=== PATIENT | female | born 2000 | race Hispanic/Latino ===

== ENCOUNTER 2019-01-24 13:46 | Inpatient (IN) | payer BC ==
[2019-01-24] MEDS ORDERED: Sodium Chloride 0.9% 1,000 ML IV STA (14:04)
--- NOTE | 2019-01-24 14:09 | ED PDOC ---
HPI: General Adult Time Seen by Provider: 01/24/19 13:59 Chief Complaint (Nursing): Abnormal Labs Chief Complaint (Provider): Low hr History Per: Patient History/Exam Limitations: no limitations Onset/Duration Of Symptoms: Days (weeks) Additional Complaint(s): Pt. has been getting work up done with her psychiatrist for depression. They had blood work done that showed some changes. Went to Dr. Mares and sent to the ER for evaluation. Pt. denies any chest pain, palpitations, dyspnea, cough, new meds or drugs, suicidal or homicidal thoughts, alchohol, dizziness. Pt. states she does work out 2x a day and is cutting calories. On no meds. Past Medical History Reviewed: Nursing Documentation, Vital Signs Vital Signs: Last Vital Signs Temp 97.5 F L 01/24/19 13:53 Pulse 38 L 01/24/19 13:53 Resp 16 01/24/19 13:53 BP 142/75 01/24/19 13:53 Pulse Ox 100 01/24/19 13:53 - Medical History PMH: Depression - Surgical History Surgical History: No Surg Hx - Family History Family History: States: Unknown Family Hx - Allergies Allergies/Adverse Reactions: Allergies Allergy/AdvReac Type Severity Reaction Status Date / Time No Known Allergies Allergy Verified 01/24/19 13:53 Review of Systems ROS Statement: Except As Marked, All Systems Reviewed And Found Negative Constitutional: Positive for: Weakness Neurological: Positive for: Weakness Physical Exam - Reviewed Nursing Documentation Reviewed: Yes Vital Signs Reviewed: Yes - Physical Exam Appears: Positive for: Uncomfortable Head Exam: Positive for: ATRAUMATIC, NORMAL INSPECTION, NORMOCEPHALIC Skin: Positive for: Normal Color, Warm, DRY Eye Exam: Positive for: EOMI, Normal appearance, PERRL ENT: Positive for: Normal ENT Inspection Neck: Positive for: Normal, Painless ROM Cardiovascular/Chest: Positive for: Bradycardia. Negative for: Edema Respiratory: Positive for: CNT, Normal Breath Sounds Gastrointestinal/Abdominal: Positive for: Normal Exam, Soft. Negative for: Tenderness Back: Positive for: Normal Inspection. Negative for: L CVA Tenderness, R CVA Tenderness Extremity: Positive for: Normal ROM. 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 Negative for: Motor/Sensory Deficits, Facial Droop - Laboratory Results Result Diagrams: 01/24/19 14:50 Interpretation Of Abn Labs: no acute - ECG ECG: Positive for: Interpreted By Me, Viewed By Me ECG Rhythm: Positive for: Sinus Bradycardia O2 Sat by Pulse Oximetry: 100 Pulse Ox Interpretation: Normal - Progress ED Course And Treament: 1459: Pt. hr goes down to 34 and then comes up to 40. Will give atropine 0.5mg IV. Pt. states only little bit of weakness. No dizziness or other symptoms. 1532: Spoke with Dr. Cantu. Will admit ICU. Spoke with Dr. Mares. Will admit. Pt. asymptomatic. HR up to 54 after atropine. 1538: Stable. AAOx3. Dr. Auguste made aware. Will consult. States nonething to do at this time. - Critical Care Total Time (In Min): 30 Documented Critical Care: Time excludes all time spent performint seperately billable procedures Disposition - Clinical Impression Clinical Impression: Bradycardia - Patient ED Disposition Is Patient to be Admitted: Yes Counseled Patient/Family Regarding: Studies Performed, Diagnosis - Disposition Disposition Time: 14:10 Condition: SERIOUS - Pt Status Changed To: Hospital Disposition Of: Inpatient - Admit Certification Admit to Inpatient:: After my assessment, the patient will require hospitalization for at least two midnights. This is because of the severity of symptoms shown, intensity of services needed, and/or the medical risk in this patient being treated as an outpatient. - POA Present On Arrival: None
[2019-01-24 14:33] LABS: VENOUS BLOOD GAS BASE EXCESS 4.4 mmol/L (0.0-2.0); VENOUS BLOOD GAS PCO2 52 mmHg (40-60); VENOUS BLOOD GAS PO2 20 mm/Hg (30-55); VENOUS BLOOD PH 7.38 (7.32-7.43)
[2019-01-24] MEDS ORDERED: levoFLOXacin 750 mg in D5W 750 MG/150 ML BAG IVPB ONE (14:45)
[2019-01-24] MEDS ORDERED: Vancomycin 1 g Inj ONE (14:45)
[2019-01-24] MEDS ORDERED: Atropine 0.4 mg/ml Inj (1 mL) IV STA (14:58)
[2019-01-24 15:00] LABS: BASO # 0.1 K/uL (0.0-0.2); BASO % 1.2 % (0.0-2.0); EOS # 0.1 K/uL (0.0-0.7); EOS % 1.2 % (0.0-4.0); HEMOGLOBIN 13.9 g/dL (12.0-16.0); LYMPH # 1.4 K/uL (1.0-4.3); LYMPH % 31.3 % (20.0-40.0); MEAN CELL VOLUME 103.3 fl (81.0-99.0); MEAN CORPUSCULAR HEMOGLOBIN 34.5 pg (27.0-31.0); MEAN CORPUSCULAR HGB CONC 33.4 g/dL (33.0-37.0); MEAN PLATELET VOLUME 8.6 fl (7.2-11.7); MONO # 0.3 K/uL (0.0-0.8); MONO % 7.1 % (0.0-10.0); NEUT # 2.7 K/uL (1.8-7.0); NEUT % 59.2 % (50.0-75.0); NRBC % 0.1 % (0.0-0.0); RBC 4.01 Mil/uL (3.80-5.20); RED CELL DISTRIBUTION WIDTH 16.2 % (11.5-14.5); WHITE BLOOD COUNT 4.6 K/uL (4.8-10.8)
[2019-01-24 15:11] LABS: ALB/GLOB RATIO 1.9 (1.0-2.1); ALT/SGPT 277 U/L (9-52); AST/SGOT 60 U/L (14-36); BLOOD UREA NITROGEN 18 mg/dl (7-17); CALCIUM 9.8 mg/dL (8.4-10.2); GFR NON-AFRICAN AMERICAN > 60
[2019-01-24 16:10] LABS: ACETAMINOPHEN < 10.0 ug/ml (10.0-30.0); SALICYLATE < 1.0 mg/dl
[2019-01-24 16:13] LABS: INR 1.2; PROTHROMBIN TIME 13.4 Seconds (9.8-13.1)
[2019-01-24 16:41] LABS: BARBITURATES, UR NEGATIVE (NEGATIVE); BENZODIAZEPINES, UR NEGATIVE (NEGATIVE); OPIATES, UR NEGATIVE (NEGATIVE); PHENCYCLIDINE, UR NEGATIVE (NEGATIVE)
--- NOTE | 2019-01-24 16:43 | RAD ---
Date of service: 01/24/2019 HISTORY: weakness COMPARISON: No prior. FINDINGS: LUNGS: No active pulmonary disease. PLEURA: No significant pleural effusion identified, no pneumothorax apparent. CARDIOVASCULAR: No atherosclerotic calcification present Normal. OSSEOUS STRUCTURES: No significant abnormalities. VISUALIZED UPPER ABDOMEN: Normal. OTHER FINDINGS: None. IMPRESSION: No active disease.
[2019-01-24] MEDS ORDERED: Potassium Chl 20 mEq in D5-NS 1,000 ML IV SCH (18:00)
[2019-01-24 18:14] LABS: FSH < 0.7 mIU/mL
--- NOTE | 2019-01-24 21:00 | CARD ---
APPROVED REPORT Date of service: 01/24/2019 EKG Measurement Heart [id number] <Conclusion> Marked sinus bradycardia Otherwise normal ECG
--- NOTE | 2019-01-25 02:44 | CON ---
DATE: 01/24/2019 CRITICAL CARE CONSULTATION The patient in the ER being admitted to ICU. REASON FOR EVALUATION: A 18-year-old female with bradycardia. Past medical, surgical, family and social history reviewed. HISTORY OF PRESENT ILLNESS: Ms. Castellanos is a 18-year-old female, freshman, living in a [place]. She is from [place]. She has been involved with physical activities up until she moved to college. Reportedly, she lost about 45 pounds since 08/2018. Reportedly, she has been watching her diet, cutting down her calorie intake. Also reports that she has limited social interaction and feels anxious and apprehensive in the college. However, she has been able to maintain her grade level in the college. Because of her recent change in behavior and because of loss of weight, she saw a metal burnisher in 08/2018. Truck Sales Manager recommended to have her evaluated by a psychiatrist. Psychiatrist evaluation noted abnormalities in the routine lab work and recommended to see an entry level electrician, seen by the entry level electrician and referred her to ER because of bradycardia. The patient denies having headache, dizziness, lightheadedness. She has no shortness of breath, chest pain or palpitations. She is able to do routine activities, but feels tired as she correlates to reduced calorie intake. PAST MEDICAL HISTORY: Significant for anxiety and depression. Had no suicidal attempts in the past. PAST SURGICAL HISTORY: Had no surgical history. FAMILY HISTORY: Unremarkable. She has a twin sister who lives in [place], reportedly has no medical issues. ALLERGIES: NONE DOCUMENTED. CURRENT MEDICATIONS: At home, none. SOCIAL HISTORY: She denies drinking alcohol or recreational drug use. PHYSICAL EXAMINATION: GENERAL: A thin-built female, oriented to name, place and time, no distress noted. VITAL SIGNS: Temperature 97.5, heart rate 38 and regular, respiratory rate of 16 thoracoabdominal, blood pressure 140/75, pulse oximetry 100. HEAD, EYES, EARS, NOSE AND THROAT: Pupils are reactive, 2-3 mm. No nystagmus. Trachea central. NECK: No jugular venous distention. CHEST: Bilateral breath sounds. Clear to auscultation. HEART: Rhythm regular. S1, S2 normal intensity. No S3, S4, gallop. No audible murmur. ABDOMEN: Bowel sounds present. Soft. Liver and spleen are not palpable. Bladder not distended. EXTREMITIES: No clubbing, cyanosis or edema. NEUROLOGIC: Nonfocal. LABORATORY DATA: EKG sinus bradycardia. WBC 4.6, hemoglobin 13.9, hematocrit 41.5, platelet count of 269. SMA-7, sodium 140, potassium 3.7, chloride 101, CO2 of 28, blood urea nitrogen 18, creatinine 0.6, random glucose 77, calcium 9.8, phosphorus 3.5, magnesium 2. Total bilirubin 0.6, AST 60, ALT 277, alkaline phosphatase 88. Troponin less than 0.0120, total protein 7.7, albumin 5. Toxicology screen, salicylates less than 1, acetaminophen less than 10. Urine drug screen, negative. Chest x-ray, no abnormality noted. IMPRESSION AND PLAN: A 18-year-old female with underlying anxiety and possible depression of unknown etiology. No history of previous suicidal attempt, now with obsessive-compulsive disorder with restricted diet, undergoing psychiatric evaluation, noted to have bradycardia, however, she has been physically active and bradycardia does not interfere with her daily routine. Will admit and do medical evaluation to rule out hypothyroidism and other electrolyte abnormalities. The patient is currently not on any medications at home. Could benefit from continued psychiatric evaluation. Will obtain a cardiology evaluation as per request of PMD and ER physician. Flako Cantu MD
[2019-01-25 05:50] LABS: HEMOGLOBIN 13.2 g/dL (12.0-16.0); MEAN CELL VOLUME 103.3 fl (81.0-99.0); MEAN CORPUSCULAR HEMOGLOBIN 34.5 pg (27.0-31.0); MEAN CORPUSCULAR HGB CONC 33.4 g/dL (33.0-37.0); RBC 3.81 Mil/uL (3.80-5.20); RED CELL DISTRIBUTION WIDTH 15.2 % (11.5-14.5); WHITE BLOOD COUNT 4.9 K/uL (4.8-10.8)
[2019-01-25 06:07] LABS: ALB/GLOB RATIO 1.8 (1.0-2.1); ALBUMIN 4.1 g/dL (3.5-5.0); ALT/SGPT 216 U/L (9-52); AST/SGOT 51 U/L (14-36); BLOOD UREA NITROGEN 18 mg/dl (7-17); CALCIUM 9.4 mg/dL (8.4-10.2); GFR NON-AFRICAN AMERICAN > 60
[2019-01-25] MEDS ORDERED: Influenza Vaccine 60 MCG/0.5 ML SYR (3 yr & up) IM ONE (07:43)
[2019-01-25 10:34] LABS: HDL CHOLESTEROL 56 MG/DL (30-70)
[2019-01-25 10:45] LABS: LDL CHOLESTEROL 49 mg/dL (0-129)
--- NOTE | 2019-01-25 10:55 | CP.PCM.CON ---
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 SHE DENIES ANY MAJOR MEDICAL PROBLEMS. SHE RECENTLY SAW A PSYCHIATRIST FOR DEPRESSION AND LABS WERE DRAWN AND LFT WERE ELEVATED. SHE SAW DR RINALDI AND SHE WAS BRADYCARDIC SO SHE WAS SENT HERE. SHE DENIES DIZZINESS, SYNCOPE OR NEAR SYNCOPE, SOB OR CHEST PAIN. 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 DR RINALDI ALSO TOLD ME SHE HAS ANOREXIA NERVOSA. Past Patient History - Past Medical History & Family History Past Medical History?: Yes - Past Social History Smoking Status: Never Smoked - CARDIAC Hx Cardiac Disorders: No - PULMONARY Hx Respiratory Disorders: No - NEUROLOGICAL Hx Neurological Disorder: No - HEENT Hx HEENT Problems: No - RENAL Hx Chronic Kidney Disease: No - ENDOCRINE/METABOLIC Hx Endocrine Disorders: No - HEMATOLOGICAL/ONCOLOGICAL Hx Blood Disorders: No - INTEGUMENTARY Hx Dermatological Problems: No - MUSCULOSKELETAL/RHEUMATOLOGICAL Hx Musculoskeletal Disorders: No Hx Falls: No - GASTROINTESTINAL Hx Gastrointestinal Disorders: No - GENITOURINARY/GYNECOLOGICAL Hx Genitourinary Disorders: No - PSYCHIATRIC Hx Anxiety: Yes Hx Depression: Yes Hx Substance Use: No - SURGICAL HISTORY Hx Surgeries: No - ANESTHESIA Hx Anesthesia: No Meds Allergies/Adverse Reactions: Allergies Allergy/AdvReac Type Severity Reaction Status Date / Time No Known Allergies Allergy Verified 01/24/19 13:53 - Medications Medications: Current Medications Atropine Sulfate (Atropine) 0.5 mg IVP Q4H PRN PRN Reason: Other Potassium Chloride/Dextrose/Sod Cl (Potassium Chl 20 Meq In D5-Ns) 1,000 mls @ 40 mls/hr IV .Q24H RADHA Stop: 01/25/19 17:07 Physical Exam - Respiratory Exam Respiratory Exam: Clear to Auscultation Bilateral - Cardiovascular Exam Cardiovascular Exam: Bradycardia, REGULAR RHYTHM, +S1, +S2 - Extremities Exam Additional comments: NO LE EDEMA AT THE PRESENT TIME - Additional Findings Additional findings: EKG SINUS BRADYCARDIA , R 39, OTHERWISE NORMAL EKG EKG SINUS RHYTHM IN THE 30'S AND 40'S TROPONIN NORMAL. AST AND ALT ARE ELEVATED TSH IS NORMAL Results - Vital Signs Recent Vital Signs: Last Vital Signs Temp 97.3 F L 01/25/19 08:00 Pulse 39 L 01/25/19 08:00 Resp 16 01/25/19 08:00 BP 103/61 01/25/19 08:00 Pulse Ox 96 01/25/19 08:00 - Labs Result Diagrams: 01/25/19 05:32 01/25/19 05:32 Labs: Laboratory Results - last 24 hr 01/24/19 01/24/19 01/24/19 14:04 14:50 14:50 WBC 4.6 L RBC 4.01 Hgb 13.9 Hct 41.5 MCV 103.3 H MCH 34.5 H MCHC 33.4 RDW 16.2 H Plt Count 269 MPV 8.6 Neut % (Auto) 59.2 Lymph % (Auto) 31.3 [place] % (Auto) 7.1 Eos % (Auto) 1.2 Baso % (Auto) 1.2 Neut # (Auto) 2.7 Lymph # (Auto) 1.4 [place] # (Auto) 0.3 Eos # (Auto) 0.1 Baso # (Auto) 0.1 PT INR APTT pO2 20 L VBG pH 7.38 VBG pCO2 52 VBG HCO3 26.6 VBG Total CO2 32.4 H VBG O2 Sat (Calc) 36.5 L VBG Base Excess 4.4 H VBG Potassium 3.7 Sodium 139.0 140 Chloride 102.0 101 Glucose 78 Lactate 0.9 FiO2 21.0 Potassium 3.7 Carbon Dioxide 28 Anion Gap 15 BUN 18 H Creatinine 0.6 L Est GFR ( Amer) > 60 Est GFR (Non-Af Amer) > 60 POC Glucose (mg/dL) Random Glucose 77 Calcium 9.8 Phosphorus 3.5 Magnesium 2.0 Total Bilirubin 0.6 AST 60 H ALT 277 H Alkaline Phosphatase 88 Troponin I < 0.0120 Total Protein 7.7 Albumin 5.0 Globulin 2.7 Albumin/Globulin Ratio 1.9 Free T4 TSH 3rd Generation FSH 3rd Generation Venous Blood Potassium 3.7 Salicylates Urine Opiates Screen Urine Methadone Screen Acetaminophen Ur Barbiturates Screen Ur Phencyclidine Scrn Ur Amphetamines Screen U Benzodiazepines Scrn U Oth Cocaine Metabols U Cannabinoids Screen Alcohol, Quantitative < 10 01/24/19 01/24/19 01/24/19 15:30 15:30 15:30 WBC RBC Hgb Hct MCV MCH MCHC RDW Plt Count MPV Neut % (Auto) Lymph % (Auto) [place] % (Auto) Eos % (Auto) Baso % (Auto) Neut # (Auto) Lymph # (Auto) [place] # (Auto) Eos # (Auto) Baso # (Auto) PT 13.4 H INR 1.2 APTT 31.0 pO2 VBG pH VBG pCO2 VBG HCO3 VBG Total CO2 VBG O2 Sat (Calc) VBG Base Excess VBG Potassium Sodium Chloride Glucose Lactate FiO2 Potassium Carbon Dioxide Anion Gap BUN Creatinine Est GFR ( Amer) Est GFR (Non-Af Amer) POC Glucose (mg/dL) Random Glucose Calcium Phosphorus Magnesium Total Bilirubin AST ALT Alkaline Phosphatase Troponin I Total Protein Albumin Globulin Albumin/Globulin Ratio Free T4 TSH 3rd Generation FSH 3rd Generation Venous Blood Potassium Salicylates < 1.0 Urine Opiates Screen Negative Urine Methadone Screen Negative Acetaminophen < 10.0 L Ur Barbiturates Screen Negative Ur Phencyclidine Scrn Negative Ur Amphetamines Screen Negative U Benzodiazepines Scrn Negative U Oth Cocaine Metabols Negative U Cannabinoids Screen Negative Alcohol, Quantitative 01/24/19 01/24/19 01/24/19 17:17 17:38 17:38 WBC RBC Hgb Hct MCV MCH MCHC RDW Plt Count MPV Neut % (Auto) Lymph % (Auto) [place] % (Auto) Eos % (Auto) Baso % (Auto) Neut # (Auto) Lymph # (Auto) [place] # (Auto) Eos # (Auto) Baso # (Auto) PT INR APTT pO2 VBG pH VBG pCO2 VBG HCO3 VBG Total CO2 VBG O2 Sat (Calc) VBG Base Excess VBG Potassium Sodium Chloride Glucose Lactate FiO2 Potassium Carbon Dioxide Anion Gap BUN Creatinine Est GFR ( Amer) Est GFR (Non-Af Amer) POC Glucose (mg/dL) 83 Random Glucose Calcium Phosphorus Magnesium Total Bilirubin AST ALT Alkaline Phosphatase Troponin I Total Protein Albumin Globulin Albumin/Globulin Ratio Free T4 0.84 TSH 3rd Generation 3.79 FSH 3rd Generation < 0.7 Venous Blood Potassium Salicylates Urine Opiates Screen Urine Methadone Screen Acetaminophen Ur Barbiturates Screen Ur Phencyclidine Scrn Ur Amphetamines Screen U Benzodiazepines Scrn U Oth Cocaine Metabols U Cannabinoids Screen Alcohol, Quantitative 01/24/19 01/25/19 01/25/19 19:31 05:32 05:32 WBC 4.9 RBC 3.81 Hgb 13.2 Hct 39.4 MCV 103.3 H MCH 34.5 H MCHC 33.4 RDW 15.2 H Plt Count 266 MPV Neut % (Auto) Lymph % (Auto) [place] % (Auto) Eos % (Auto) Baso % (Auto) Neut # (Auto) Lymph # (Auto) [place] # (Auto) Eos # (Auto) Baso # (Auto) PT INR APTT pO2 VBG pH VBG pCO2 VBG HCO3 VBG Total CO2 VBG O2 Sat (Calc) VBG Base Excess VBG Potassium Sodium 138 Chloride 103 Glucose Lactate FiO2 Potassium 3.9 Carbon Dioxide 29 Anion Gap 10 BUN 18 H Creatinine 0.7 Est GFR ( Amer) > 60 Est GFR (Non-Af Amer) > 60 POC Glucose (mg/dL) 94 Random Glucose 94 Calcium 9.4 Phosphorus Magnesium Total Bilirubin 0.6 AST 51 H ALT 216 H D Alkaline Phosphatase 72 Troponin I Total Protein 6.4 Albumin 4.1 Globulin 2.3 Albumin/Globulin Ratio 1.8 Free T4 TSH 3rd Generation FSH 3rd Generation Venous Blood Potassium Salicylates Urine Opiates Screen Urine Methadone Screen Acetaminophen Ur Barbiturates Screen Ur Phencyclidine Scrn Ur Amphetamines Screen U Benzodiazepines Scrn U Oth Cocaine Metabols U Cannabinoids Screen Alcohol, Quantitative Assessment & Plan - Assessment and Plan (Free Text) Assessment: 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
--- NOTE | 2019-01-25 14:12 | CP.PCM.CON ---
History of Present Illness - History of Present Illness History of Present Illness: pt is 18 ys old female with recent psychiatric diagnosis of anorexia nervosa restricting type admitted for work up for bradycardia. pt reported that till last august her body was up to 165 lb , she was feeling down about her body weight , she started a strenuous exercise to manage her body weight program, and met with a store gift wrap associate, pt since then has lost about 40lbs, at the current time sheis having distorted body image continues to see herselk overweight in the mirror with fear of her looks, restricting her diet , pt has seeked counseling in school and started seeing client resource specialist only one week ago she reported that she feels very depressed as her fear of gaining weight makes her miss on all the fun activities and she also feels anxious that she has to keep up with all this hard work to maintain her low body weight pt denied any purging, denied any other self harm behaviour, denied suicidal or homicidal ideation denied perceptual disturbances Past Patient History - Past Medical History & Family History Past Medical History?: Yes - Past Social History Smoking Status: Never Smoked - CARDIAC Hx Cardiac Disorders: No - PULMONARY Hx Respiratory Disorders: No - NEUROLOGICAL Hx Neurological Disorder: No - HEENT Hx HEENT Problems: No - RENAL Hx Chronic Kidney Disease: No - ENDOCRINE/METABOLIC Hx Endocrine Disorders: No - HEMATOLOGICAL/ONCOLOGICAL Hx Blood Disorders: No - INTEGUMENTARY Hx Dermatological Problems: No - MUSCULOSKELETAL/RHEUMATOLOGICAL Hx Musculoskeletal Disorders: No Hx Falls: No - GASTROINTESTINAL Hx Gastrointestinal Disorders: No - GENITOURINARY/GYNECOLOGICAL Hx Genitourinary Disorders: No - PSYCHIATRIC Hx Anxiety: Yes Hx Depression: Yes Hx Substance Use: No - SURGICAL HISTORY Hx Surgeries: No - ANESTHESIA Hx Anesthesia: No Meds Allergies/Adverse Reactions: Allergies Allergy/AdvReac Type Severity Reaction Status Date / Time No Known Allergies Allergy Verified 01/24/19 13:53 - Medications Medications: Current Medications Atropine Sulfate (Atropine) 0.5 mg IVP Q4H PRN PRN Reason: Other Potassium Chloride/Dextrose/Sod Cl (Potassium Chl 20 Meq In D5-Ns) 1,000 mls @ 40 mls/hr IV .Q24H RADHA Stop: 01/25/19 17:07 Physical Exam - Psychiatric Exam Additional comments: pt seen in bed , cooperative good eye contact speech normal, thought form coherent . mood depressed related that to missing on her excercise this morning affect tearful, pt denied any current suicidal or homicidal ideation denied perceptual disturbances, non elicited alert awake ox3 Results - Vital Signs Recent Vital Signs: Last Vital Signs Temp 98.1 F 01/25/19 12:00 Pulse 41 L 01/25/19 12:47 Resp 20 01/25/19 12:00 BP 104/61 01/25/19 12:00 Pulse Ox 98 01/25/19 12:00 - Labs Result Diagrams: 01/25/19 05:32 01/25/19 05:32 Labs: Laboratory Results - last 24 hr 01/24/19 01/24/19 01/24/19 14:04 14:50 14:50 WBC 4.6 L RBC 4.01 Hgb 13.9 Hct 41.5 MCV 103.3 H MCH 34.5 H MCHC 33.4 RDW 16.2 H Plt Count 269 MPV 8.6 Neut % (Auto) 59.2 Lymph % (Auto) 31.3 [place] % (Auto) 7.1 Eos % (Auto) 1.2 Baso % (Auto) 1.2 Neut # (Auto) 2.7 Lymph # (Auto) 1.4 [place] # (Auto) 0.3 Eos # (Auto) 0.1 Baso # (Auto) 0.1 PT INR APTT pO2 20 L VBG pH 7.38 VBG pCO2 52 VBG HCO3 26.6 VBG Total CO2 32.4 H VBG O2 Sat (Calc) 36.5 L VBG Base Excess 4.4 H VBG Potassium 3.7 Sodium 139.0 140 Chloride 102.0 101 Glucose 78 Lactate 0.9 FiO2 21.0 Potassium 3.7 Carbon Dioxide 28 Anion Gap 15 BUN 18 H Creatinine 0.6 L Est GFR ( Amer) > 60 Est GFR (Non-Af Amer) > 60 POC Glucose (mg/dL) Random Glucose 77 Calcium 9.8 Phosphorus 3.5 Magnesium 2.0 Total Bilirubin 0.6 AST 60 H ALT 277 H Alkaline Phosphatase 88 Troponin I < 0.0120 Total Protein 7.7 Albumin 5.0 Globulin 2.7 Albumin/Globulin Ratio 1.9 Triglycerides Cholesterol LDL Cholesterol Direct HDL Cholesterol Free T4 TSH 3rd Generation FSH 3rd Generation Venous Blood Potassium 3.7 Salicylates Urine Opiates Screen Urine Methadone Screen Acetaminophen Ur Barbiturates Screen Ur Phencyclidine Scrn Ur Amphetamines Screen U Benzodiazepines Scrn U Oth Cocaine Metabols U Cannabinoids Screen Alcohol, Quantitative < 10 01/24/19 01/24/19 01/24/19 15:30 15:30 15:30 WBC RBC Hgb Hct MCV MCH MCHC RDW Plt Count MPV Neut % (Auto) Lymph % (Auto) [place] % (Auto) Eos % (Auto) Baso % (Auto) Neut # (Auto) Lymph # (Auto) [place] # (Auto) Eos # (Auto) Baso # (Auto) PT 13.4 H INR 1.2 APTT 31.0 pO2 VBG pH VBG pCO2 VBG HCO3 VBG Total CO2 VBG O2 Sat (Calc) VBG Base Excess VBG Potassium Sodium Chloride Glucose Lactate FiO2 Potassium Carbon Dioxide Anion Gap BUN Creatinine Est GFR ( Amer) Est GFR (Non-Af Amer) POC Glucose (mg/dL) Random Glucose Calcium Phosphorus Magnesium Total Bilirubin AST ALT Alkaline Phosphatase Troponin I Total Protein Albumin Globulin Albumin/Globulin Ratio Triglycerides Cholesterol LDL Cholesterol Direct HDL Cholesterol Free T4 TSH 3rd Generation FSH 3rd Generation Venous Blood Potassium Salicylates < 1.0 Urine Opiates Screen Negative Urine Methadone Screen Negative Acetaminophen < 10.0 L Ur Barbiturates Screen Negative Ur Phencyclidine Scrn Negative Ur Amphetamines Screen Negative U Benzodiazepines Scrn Negative U Oth Cocaine Metabols Negative U Cannabinoids Screen Negative Alcohol, Quantitative 01/24/19 01/24/19 01/24/19 17:17 17:38 17:38 WBC RBC Hgb Hct MCV MCH MCHC RDW Plt Count MPV Neut % (Auto) Lymph % (Auto) [place] % (Auto) Eos % (Auto) Baso % (Auto) Neut # (Auto) Lymph # (Auto) [place] # (Auto) Eos # (Auto) Baso # (Auto) PT INR APTT pO2 VBG pH VBG pCO2 VBG HCO3 VBG Total CO2 VBG O2 Sat (Calc) VBG Base Excess VBG Potassium Sodium Chloride Glucose Lactate FiO2 Potassium Carbon Dioxide Anion Gap BUN Creatinine Est GFR ( Amer) Est GFR (Non-Af Amer) POC Glucose (mg/dL) 83 Random Glucose Calcium Phosphorus Magnesium Total Bilirubin AST ALT Alkaline Phosphatase Troponin I Total Protein Albumin Globulin Albumin/Globulin Ratio Triglycerides Cholesterol LDL Cholesterol Direct HDL Cholesterol Free T4 0.84 TSH 3rd Generation 3.79 FSH 3rd Generation < 0.7 Venous Blood Potassium Salicylates Urine Opiates Screen Urine Methadone Screen Acetaminophen Ur Barbiturates Screen Ur Phencyclidine Scrn Ur Amphetamines Screen U Benzodiazepines Scrn U Oth Cocaine Metabols U Cannabinoids Screen Alcohol, Quantitative 01/24/19 01/25/19 01/25/19 19:31 05:32 05:32 WBC 4.9 RBC 3.81 Hgb 13.2 Hct 39.4 MCV 103.3 H MCH 34.5 H MCHC 33.4 RDW 15.2 H Plt Count 266 MPV Neut % (Auto) Lymph % (Auto) [place] % (Auto) Eos % (Auto) Baso % (Auto) Neut # (Auto) Lymph # (Auto) [place] # (Auto) Eos # (Auto) Baso # (Auto) PT INR APTT pO2 VBG pH VBG pCO2 VBG HCO3 VBG Total CO2 VBG O2 Sat (Calc) VBG Base Excess VBG Potassium Sodium 138 Chloride 103 Glucose Lactate FiO2 Potassium 3.9 Carbon Dioxide 29 Anion Gap 10 BUN 18 H Creatinine 0.7 Est GFR ( Amer) > 60 Est GFR (Non-Af Amer) > 60 POC Glucose (mg/dL) 94 Random Glucose 94 Calcium 9.4 Phosphorus Magnesium Total Bilirubin 0.6 AST 51 H ALT 216 H D Alkaline Phosphatase 72 Troponin I Total Protein 6.4 Albumin 4.1 Globulin 2.3 Albumin/Globulin Ratio 1.8 Triglycerides 91 Cholesterol 112 LDL Cholesterol Direct 49 HDL Cholesterol 56 Free T4 TSH 3rd Generation FSH 3rd Generation Venous Blood Potassium Salicylates Urine Opiates Screen Urine Methadone Screen Acetaminophen Ur Barbiturates Screen Ur Phencyclidine Scrn Ur Amphetamines Screen U Benzodiazepines Scrn U Oth Cocaine Metabols U Cannabinoids Screen Alcohol, Quantitative Assessment & Plan - Assessment and Plan (Free Text) Assessment: anorexia nervosa restricting type Plan: BRIEF CBT provided to patient about automatic thoughts related to distorted body image educated the patient about the possible impact of food restriction on her health pt at current mental status denied suicidal or homicidal ideation denied perceptual disturbances psychiatrically cleared for discharge with the following recommendations 1. careful follow up at least weekly by PMD on body weight and metabolic pannel with possible inpatient admission if needed 2. discussed with pt referral to intensive inpatient eating disorder center upon finishing her finals { the [facility] in [facility] } 3. pt need to continue follow up with private therapist at least weekly till then
--- NOTE | 2019-01-25 14:32 | CON ---
DATE: 01/25/2019 REASON FOR ELECTROPHYSIOLOGY CONSULTATION: Bradycardia/sinus bradycardia. REQUESTING PHYSICIAN: Eric Blue MD HISTORY OF PRESENT ILLNESS: Ms. Mel Castellanos is a 18-year-old female without significant past medical history who presents for EP evaluation after being admitted to the ICU with severe sinus bradycardia with heart rate in the 30s. 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 She is very active playing for the [employer] for the school, also is on a vigorous exercise program, which includes working out twice a day. In addition, the patient has put herself on a low-calorie intake diet in an effort to lose weight. She reportedly has lost approximately 45 pounds since 08/2018. The patient is under stress at school to maintain her grades as well as keep up with other activity. She does experience symptoms of anxiety and limited social interaction. The patient in the process of addressing her nutritional status has seen a dietitian, who then referred to a psychiatrist to deal with her anxiety issues. Ultimately, did see an lna who had noted on an EKG that her sinus rates were in the 30s and 40s and referred her for ER evaluation from the office. In the ER, the patient was found to be hemodynamically stable and was in a sinus bradycardia in the mid 30s to 40s. The patient was given atropine, which strangely did increase her heart rate up into the 50s and subsequently back down to her baseline bradycardia. As mentioned previously, she is very active. Denies any activity intolerance. Does at times feel fatigued, but is believed to be secondary to decreased p.o. intake. She denies any dizziness, lightheadedness, palpitations, syncope, or presyncope. She did not have any chest pain or shortness of breath. Last week, interestingly the patient did note bilateral lower extremity swelling as well as some degree of swelling in her face, which did resolve spontaneously. PAST MEDICAL HISTORY: As mentioned in the history of present illness that includes anxiety and depression for which she has not been treated medically. PAST SURGICAL HISTORY: The patient has no past surgical history. FAMILY HISTORY: The patient has a twin sister who is reportedly healthy and lives in [place]. ALLERGIES: NO KNOWN DRUG ALLERGIES. MEDICATIONS: No medications. SOCIAL HISTORY: The patient does not admit to having a history of tobacco, ETOH abuse, or recreational drug abuse. LABORATORY DATA: On review of relevant laboratory work, the patient has a white count of 4.6, H and H of 13.9 and 41.05. The patient does appear to have a macrocytosis with an MCV of 103 and MCH of 34.5, platelets of 269. INR is 1.2. PT is 13.4. Blood gas showed a pH of 7.38, pO2 of 20 with a CO2 on venous blood gas of 32.4. BUN and creatinine is 18 and 0.6. Sodium of 140, potassium is 3.7, calcium of 9.8, albumin of 5, ALT and AST of 50 and 2.77. Toxicology on admission was negative. TSH is 3.79. Free T4 is 0.84. Prolactin is pending. Telemetry shows sinus bradycardia with heart rates at times approaching 60. Baseline heart rates are in the mid to high 30s. Lowest documented heart rate is 32 beats per minute. EKG, which was done on 01/23/2019 shows normal sinus rhythm/bradycardia. Normal P-wave morphology. No evidence of preexcitation. Normal axis across the precordium. Normal R-wave progression. QT and QTC is 550 and 442. corrected QTC is within normal limit. PHYSICAL EXAMINATION: VITAL SIGNS: On examination, temperature is 98.2, pulse rate of 38, blood pressure is 100/65, mean arterial pressure is 76, respirations of 16. GENERAL: She is a well-developed, well-nourished, pleasant, appropriate female in no acute distress. Able to speak in complete sentences. HEENT: Examination of her head is normocephalic, atraumatic. There is no shawnee facial asymmetry. Mucous membranes appear moist. NECK: Supple. No jugular venous distention. CHEST: Clear to auscultation bilaterally. CARDIOVASCULAR: Regular rate and rhythm. S1, S2. No S3 or S4 is noted. ABDOMEN: Soft, nontender, nondistended. Positive bowel sounds. EXTREMITIES: No cyanosis, clubbing or edema is noted at this time. ASSESSMENT AND PLAN: 1. 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 At this point, she has no symptoms that would be suggestive of chronotropic incompetence. At this point, we will not require chronotropic support in the form of a permanent pacemaker. She is not on rate-slowing agents and at this point, we will not require any intervention from my standpoint. 2D echocardiogram would ambulate to document appropriate heart rate response without any symptoms. 2. Elevation of liver enzymes of unclear cause. The patient has been counseled to regularize and normalize her dietary patterns. Unclear if this is secondary to metabolic derangement secondary to her severe exercise program. 3. History of lower extremity edema and facial swelling last week. It is unclear whether this is secondary to exercise-induced skeletal muscle breakdown resulting in rhabdomyolysis. Again, the patient has been counseled as far as limiting extreme twice a day exercise and again regularizing her diet to allow for reasonable caloric intake. Thank you for allowing me to participate in the care of your patient. Please do not hesitate to call if you have any questions or requests to her care. The patient was seen in the ICU. The patient's case has been discussed with her as well as critical care physicians and referring clinical application consultant, Dr. Blue. Alex Vallecillo MD cc: Eric Blue MD
[2019-01-25 16:19] LABS: PROLACTIN 17.3 ng/mL (3.0-18.9)
--- NOTE | 2019-01-25 17:04 | US ---
Date of service: 01/25/2019 HISTORY: elevated LFT COMPARISON: None available TECHNIQUE: Sonographic evaluation of the right upper quadrant of the abdomen. FINDINGS: LIVER: Measures 13.8 cm in length. Normal echogenicity of the liver parenchyma. No focal hepatic mass identified. The main portal vein appears patent with normal directional flow. No intrahepatic bile duct dilatation. Trace perihepatic ascites. GALLBLADDER: No gallstones. No gallbladder wall thickening or pericholecystic edema. Negative sonographic Terry's sign as assessed by the endoscopy specialty technician. COMMON BILE DUCT: Measures 3 mm. PANCREAS: Not well-visualized. RIGHT KIDNEY: Measures approximately 10.0 x 4.1 x 5.9 cm. No obstructing calculus or hydronephrosis identified. AORTA: Limited visualization appears grossly unremarkable. IVC: Limited visualization appears grossly unremarkable. OTHER FINDINGS: None . IMPRESSION: Trace perihepatic ascites.
--- NOTE | 2019-01-25 19:55 | CP.PCM.PN ---
Subjective - Date & Time of Evaluation Date of Evaluation: 01/25/19 Time of Evaluation: 22:22 - Subjective Subjective: 18 yo admitted for Bradycardia and ?? Hx of anorexia nervosa Extensive discussions with Associate School Psychologist and ER Physician Objective - Vital Signs/Intake and Output Vital Signs (last 24 hours): Temp Pulse Resp BP Pulse Ox 97.9 F 41 L 20 127/67 98 01/25/19 16:44 01/25/19 16:44 01/25/19 16:44 01/25/19 16:44 01/25/19 16:44 - Medications Medications: Current Medications Atropine Sulfate (Atropine) 0.5 mg IVP Q4H PRN PRN Reason: Other - Labs Labs: 01/25/19 05:32 01/25/19 05:32 PT 13.4 Seconds (9.8-13.1) H 01/24/19 15:30 INR 1.2 01/24/19 15:30 APTT 31.0 Seconds (25.6-37.1) 01/24/19 15:30 - Respiratory Exam Respiratory Exam: NORMAL BREATHING PATTERN - Cardiovascular Exam Cardiovascular Exam: REGULAR RHYTHM - GI/Abdominal Exam GI & Abdominal Exam: Normal Bowel Sounds Assessment and Plan - Assessment and Plan (Free Text) Assessment: Bradycardia ?? Hx of anorexia nervosa Telemetry Cardiology Psychiatry LFT's elevated w/u and US Macrocytosis 2 to LIver dx ??
--- NOTE | 2019-01-25 20:19 | CARD ---
APPROVED REPORT Date of service: 01/25/2019 EXAM: Two-dimensional and M-mode echocardiogram with Doppler and color Doppler. Other Information Quality : ExcellentRhythm : Bradycardia INDICATION Abnormal EKG/Arrhythmia 2D DIMENSIONS IVSd0.90 (0.7-1.1cm)LVDd4.91 (3.9-5.9cm) LVOT Diameter2.22 (1.8-2.4cm)PWd0.91 (0.7-1.1cm) IVSs1.31 (0.8-1.2cm)LVDs3.42 (2.5-4.0cm) FS (%) 30.5 %PWs1.40 (0.8-1.2cm) M-Mode DIMENSIONS Left Atrium (MM)3.73 (2.5-4.0cm)IVSd0.91 (0.7-1.1cm) Aortic Root2.89 (2.2-3.7cm)LVDd5.16 (4.0-5.6cm) Aortic Cusp Exc.1.98 (1.5-2.0cm)PWd0.88 (0.7-1.1cm) IVSs1.19 cmFS (%) 39 % LVDs3.15 (2.0-3.8cm)PWs1.39 cm Aortic Valve AoV Peak Bfbsjkhy580.7cm/sAoV VTI25.0cmAO Peak GR.5mmHg LVOT Peak Tpdekibc49.4cm/sLVOT VTI20.91cmAO Mean GR.3mmHg NATE (VMAX)2.50cx6MMS (VTI)2.09cm2 Mitral Valve MV E Mlpgdaky28.6cm/sMV DECEL [id number] A Vtqnqivt11.8cm/s MV ZWB13xwO/A ratio2.3MVA (PHT)3.05cm2 TDI Lateral E' Peak V12.06cm/sMedial E' Peak V9.53cm/sE/Lateral E'5.9 E/Medial E'7.5 Tricuspid Valve TR Peak Bbjsoiob762ql/sRAP VDICWXMQ43xdFaEP Peak Gr.15mmHg YNCS17fkCx LEFT VENTRICLE The left ventricle is normal size. There is normal left ventricular wall thickness. The left ventricular systolic function is normal. The estimated ejection fraction is 55-60% No regional wall motion abnormalities noted.. The left ventricular diastolic function is normal. No left ventricle thrombus noted on this study. There is no ventricular septal defect visualized. There is no left ventricular aneurysm. There is no mass noted in the left ventricle. RIGHT VENTRICLE The right ventricle is normal size. There is normal right ventricular wall thickness. The right ventricular systolic function is normal. ATRIA The left atrium size is normal. The right atrium size is normal. The interatrial septum is intact with no evidence for an atrial septal defect. AORTIC VALVE The aortic valve is normal in structure. No aortic regurgitation is present. There is no aortic valvular stenosis. There is no aortic valvular vegetation. MITRAL VALVE The mitral valve is normal in structure. There is no evidence of mitral valve prolapse. There is no mitral valve stenosis. There is trace mitral valve regurgitation noted. TRICUSPID VALVE The tricuspid valve is normal in structure. There is trace tricuspid valve regurgitation noted. RVSP is calculated at 20 mm Hg. There is no tricuspid valve prolapse or vegetation. There is no tricuspid valve stenosis. PULMONIC VALVE The pulmonary valve is normal in structure. There is no pulmonic valvular regurgitation. There is no pulmonic valvular stenosis. GREAT VESSELS The aortic root is normal in size. The ascending aorta is normal in size. The pulmonary artery is normal. The IVC is normal in size and collapses >50% with inspiration. PERICARDIAL EFFUSION There is no pericardial effusion. There is no pleural effusion. <Conclusion> The estimated ejection fraction is 55-60% The left ventricular diastolic function is normal. The left atrium size is normal. There is trace mitral valve regurgitation noted. There is trace tricuspid valve regurgitation noted. RVSP is calculated at 20 mm Hg.
[2019-01-26 05:26] LABS: BASO # 0.1 K/uL (0.0-0.2); EOS # 0.2 K/uL (0.0-0.7); EOS % 3.6 % (0.0-4.0); LYMPH # 1.6 K/uL (1.0-4.3); LYMPH % 28.1 % (20.0-40.0); MEAN CELL VOLUME 103.7 fl (81.0-99.0); MEAN CORPUSCULAR HEMOGLOBIN 34.7 pg (27.0-31.0); MEAN CORPUSCULAR HGB CONC 33.5 g/dL (33.0-37.0); MEAN PLATELET VOLUME 8.6 fl (7.2-11.7); MONO # 0.5 K/uL (0.0-0.8); MONO % 9.6 % (0.0-10.0); NEUT # 3.3 K/uL (1.8-7.0); NEUT % 57.7 % (50.0-75.0); NRBC % 0.1 % (0.0-0.0); RBC 4.04 Mil/uL (3.80-5.20); RED CELL DISTRIBUTION WIDTH 15.1 % (11.5-14.5); WHITE BLOOD COUNT 5.7 K/uL (4.8-10.8)
[2019-01-26 05:45] LABS: ALB/GLOB RATIO 1.8 (1.0-2.1); ALBUMIN 4.2 g/dL (3.5-5.0); ALT/SGPT 203 U/L (9-52); AST/SGOT 47 U/L (14-36); BLOOD UREA NITROGEN 19 mg/dl (7-17); CALCIUM 9.3 mg/dL (8.4-10.2); GFR NON-AFRICAN AMERICAN > 60
--- NOTE | 2019-01-26 10:23 | CP.PCM.PN ---
Subjective - Date & Time of Evaluation Date of Evaluation: 01/26/19 Time of Evaluation: 09:15 - Subjective Subjective: NO COMPLAINTS Objective - Vital Signs/Intake and Output Vital Signs (last 24 hours): Temp Pulse Resp BP Pulse Ox 97.9 F 34 L 20 102/64 98 01/26/19 08:19 01/26/19 08:19 01/26/19 08:19 01/26/19 08:19 01/26/19 08:19 - Medications Medications: Current Medications Atropine Sulfate (Atropine) 0.5 mg IVP Q4H PRN PRN Reason: Other - Labs Labs: 01/26/19 04:45 01/26/19 04:45 PT 13.4 Seconds (9.8-13.1) H 01/24/19 15:30 INR 1.2 01/24/19 15:30 APTT 31.0 Seconds (25.6-37.1) 01/24/19 15:30 - Respiratory Exam Respiratory Exam: Clear to Ausculation Bilateral - Cardiovascular Exam Cardiovascular Exam: REGULAR RHYTHM, +S1, +S2 - Extremities Exam Additional comments: NO LE EDEMA - Additional Findings Additional findings: TRANSLATOR DEAF NSR, R 70 BPM ECHOCARDIOGRAM WITH NORMAL LV FUNCTION PSYCHIATRY NOTE WITH DIAGNOSIS OF ANOREXIA NERVOSA SEEN Assessment and Plan - Assessment and Plan (Free Text) Assessment: ATHLETE'S HEART WITH ASYMPTOMATIC SINUS BRADYCARDIA ANOREXIA NERVOSA Plan: THE PATIENT CAN BE DISCHARGE FROM THE CARDIAC VIEWPOINT
--- NOTE | 2019-01-26 12:16 | CP.PCM.CON ---
History of Present Illness - History of Present Illness History of Present Illness: 18 year old female with a history of anorexia nervosa, admitted with bradycardia, found to have macrocytosis. The patient in unaware of blood problems overall but was recently told she has low vit d. She reports to a 40 pound weightloss and recent diagnosis of anorexia. She reports to trying to eat very healthy and working out twice daily. She denies abnormal bleeding and bruising. Past medical history: Anorexia nervosa Past surgical history: Denies Family history: Denies hematologic and oncologic problems Social history: Denies tobacco, alcohol, and illicit drug use Allergies: NKA Review of system: All remaining review of systems including HEENT, cardiovascular, respiratory, gastrointestinal, genitourinary, musculoskeletal, dermatologic, neurologic, and psychiatric are negative unless mentioned in the HPI. Past Patient History - Past Medical History & Family History Past Medical History?: Yes - Past Social History Smoking Status: Never Smoked - CARDIAC Hx Cardiac Disorders: No - PULMONARY Hx Respiratory Disorders: No - NEUROLOGICAL Hx Neurological Disorder: No - HEENT Hx HEENT Problems: No - RENAL Hx Chronic Kidney Disease: No - ENDOCRINE/METABOLIC Hx Endocrine Disorders: No - HEMATOLOGICAL/ONCOLOGICAL Hx Blood Disorders: No - INTEGUMENTARY Hx Dermatological Problems: No - MUSCULOSKELETAL/RHEUMATOLOGICAL Hx Musculoskeletal Disorders: No Hx Falls: No - GASTROINTESTINAL Hx Gastrointestinal Disorders: No - GENITOURINARY/GYNECOLOGICAL Hx Genitourinary Disorders: No - PSYCHIATRIC Hx Anxiety: Yes Hx Depression: Yes Hx Substance Use: No - SURGICAL HISTORY Hx Surgeries: No - ANESTHESIA Hx Anesthesia: No Meds Allergies/Adverse Reactions: Allergies Allergy/AdvReac Type Severity Reaction Status Date / Time No Known Allergies Allergy Verified 01/24/19 13:53 - Medications Medications: Current Medications Atropine Sulfate (Atropine) 0.5 mg IVP Q4H PRN PRN Reason: Other Physical Exam - Head Exam Head Exam: ATRAUMATIC - Eye Exam Eye Exam: Normal appearance - ENT Exam ENT Exam: Mucous Membranes Dry - Respiratory Exam Respiratory Exam: NORMAL BREATHING PATTERN - Cardiovascular Exam Cardiovascular Exam: +S1, +S2 - GI/Abdominal Exam GI & Abdominal Exam: Normal Bowel Sounds - Extremities Exam Extremities exam: Positive for: normal inspection - Neurological Exam Neurological exam: Oriented x3 - Psychiatric Exam Psychiatric exam: Normal Affect, Normal Mood - Skin Skin Exam: Warm Results - Vital Signs Recent Vital Signs: Last Vital Signs Temp 97.9 F 01/26/19 08:19 Pulse 34 L 01/26/19 08:19 Resp 20 01/26/19 08:19 BP 102/64 01/26/19 08:19 Pulse Ox 98 01/26/19 08:19 - Labs Result Diagrams: 01/26/19 04:45 01/26/19 04:45 Labs: Laboratory Results - last 24 hr 01/24/19 01/24/19 01/24/19 17:02 17:02 17:02 WBC RBC Hgb Hct MCV MCH MCHC RDW Plt Count MPV Neut % (Auto) Lymph % (Auto) [place] % (Auto) Eos % (Auto) Baso % (Auto) Neut # (Auto) Lymph # (Auto) [place] # (Auto) Eos # (Auto) Baso # (Auto) Sodium Potassium Chloride Carbon Dioxide Anion Gap BUN Creatinine Est GFR ( Amer) Est GFR (Non-Af Amer) Random Glucose Calcium Phosphorus Magnesium Total Bilirubin AST ALT Alkaline Phosphatase Total Protein Albumin Globulin Albumin/Globulin Ratio Vitamin B12 Prolactin Hep Bs Antibody, Quant 10 Hep B Core IgM Ab Negative Hepatitis C Antibody Negative 01/24/19 01/26/19 01/26/19 17:38 04:45 04:45 WBC 5.7 RBC 4.04 Hgb 14.0 Hct 41.8 MCV 103.7 H MCH 34.7 H MCHC 33.5 RDW 15.1 H Plt Count 257 MPV 8.6 Neut % (Auto) 57.7 Lymph % (Auto) 28.1 [place] % (Auto) 9.6 Eos % (Auto) 3.6 Baso % (Auto) 1.0 Neut # (Auto) 3.3 Lymph # (Auto) 1.6 [place] # (Auto) 0.5 Eos # (Auto) 0.2 Baso # (Auto) 0.1 Sodium 138 Potassium 4.0 Chloride 103 Carbon Dioxide 28 Anion Gap 11 BUN 19 H Creatinine 0.7 Est GFR ( Amer) > 60 Est GFR (Non-Af Amer) > 60 Random Glucose 86 Calcium 9.3 Phosphorus 4.4 Magnesium 2.1 Total Bilirubin 0.5 AST 47 H ALT 203 H Alkaline Phosphatase 72 Total Protein 6.6 Albumin 4.2 Globulin 2.4 Albumin/Globulin Ratio 1.8 Vitamin B12 Prolactin 17.3 Hep Bs Antibody, Quant Hep B Core IgM Ab Hepatitis C Antibody 01/26/19 10:05 WBC RBC Hgb Hct MCV MCH MCHC RDW Plt Count MPV Neut % (Auto) Lymph % (Auto) [place] % (Auto) Eos % (Auto) Baso % (Auto) Neut # (Auto) Lymph # (Auto) [place] # (Auto) Eos # (Auto) Baso # (Auto) Sodium Potassium Chloride Carbon Dioxide Anion Gap BUN Creatinine Est GFR ( Amer) Est GFR (Non-Af Amer) Random Glucose Calcium Phosphorus Magnesium Total Bilirubin AST ALT Alkaline Phosphatase Total Protein Albumin Globulin Albumin/Globulin Ratio Vitamin B12 288 Prolactin Hep Bs Antibody, Quant Hep B Core IgM Ab Hepatitis C Antibody Assessment & Plan (1) Macrocytosis without anemia Assessment and Plan: suspect nutritional deficiency given extreme dieting and weightloss b12 level borderline, awaiting folate levels will add zinc and copper levels normal TSH - hypothyroidism can cause elevated MCV elevated AST/ALT with perihepatic fluid by imaging - liver disease can raise MCV will start B12 and folic acid supplementation will review peripheral smear Thank you for this interesting consult. Status: Acute
--- NOTE | 2019-01-26 20:25 | CP.PCM.PN ---
Subjective - Date & Time of Evaluation Date of Evaluation: 01/26/19 Time of Evaluation: 22:22 - Subjective Subjective: 18 yo admitted for Bradycardia and ?? Hx of anorexia nervosa PT also found to have elevated LFT's Extensive discussion with cardiology Objective - Vital Signs/Intake and Output Vital Signs (last 24 hours): Temp Pulse Resp BP Pulse Ox 98.3 F 44 L 18 98/59 L 97 01/26/19 20:12 01/26/19 20:12 01/26/19 20:12 01/26/19 20:12 01/26/19 20:12 - Medications Medications: Current Medications Atropine Sulfate (Atropine) 0.5 mg IVP Q4H PRN PRN Reason: Other Cyanocobalamin (Vitamin B12 1000 Mcg/Ml Inj) 1,000 mcg IM DAILY [facility] Last Admin: 01/26/19 17:06 Dose: 1,000 mcg Folic Acid (Folic Acid) 1 mg PO DAILY [facility] Last Admin: 01/26/19 17:06 Dose: 1 mg - Labs Labs: 01/26/19 04:45 01/26/19 04:45 PT 13.4 Seconds (9.8-13.1) H 01/24/19 15:30 INR 1.2 01/24/19 15:30 APTT 31.0 Seconds (25.6-37.1) 01/24/19 15:30 - Respiratory Exam Respiratory Exam: NORMAL BREATHING PATTERN - Cardiovascular Exam Cardiovascular Exam: REGULAR RHYTHM - GI/Abdominal Exam GI & Abdominal Exam: Normal Bowel Sounds Assessment and Plan - Assessment and Plan (Free Text) Assessment: Bradycardia Athletic heart syndrome ?? Hx of anorexia nervosa Telemetry Cardiology Psychiatry LFT's elevated w/u and US GI Macrocytosis 2 to LIver dx ?? Hematology
[2019-01-26 21:28] LABS: FOLATE 12.7 ng/mL
[2019-01-27 05:00] VITALS: RESP 20
[2019-01-27 06:16] LABS: HEMOGLOBIN 14.5 g/dL (12.0-16.0); MEAN CELL VOLUME 103.6 fl (81.0-99.0); MEAN CORPUSCULAR HEMOGLOBIN 34.5 pg (27.0-31.0); MEAN CORPUSCULAR HGB CONC 33.3 g/dL (33.0-37.0); RBC 4.21 Mil/uL (3.80-5.20); RED CELL DISTRIBUTION WIDTH 15.5 % (11.5-14.5); WHITE BLOOD COUNT 4.8 K/uL (4.8-10.8)
[2019-01-27 06:19] LABS: ALB/GLOB RATIO 1.8 (1.0-2.1); ALBUMIN 4.6 g/dL (3.5-5.0); ALT/SGPT 192 U/L (9-52); AST/SGOT 41 U/L (14-36); BLOOD UREA NITROGEN 22 mg/dl (7-17); CALCIUM 9.6 mg/dL (8.4-10.2); GFR NON-AFRICAN AMERICAN > 60
[2019-01-27 06:48] LABS: FERRITIN 38.5 ng/Ml (6.24-137.0)
[2019-01-27 07:52] VITALS: BP 99/62; PULSE 38; TEMP 97.6; O2SAT 96
--- NOTE | 2019-01-27 10:38 | CP.PCM.PN ---
Subjective - Date & Time of Evaluation Date of Evaluation: 01/27/19 Time of Evaluation: 09:30 - Subjective Subjective: NO COMPLAINTS Objective - Vital Signs/Intake and Output Vital Signs (last 24 hours): Temp Pulse Resp BP Pulse Ox 97.6 F 38 L 20 99/62 L 96 01/27/19 07:51 01/27/19 07:51 01/27/19 07:51 01/27/19 07:51 01/27/19 07:51 - Medications Medications: Current Medications Atropine Sulfate (Atropine) 0.5 mg IVP Q4H PRN PRN Reason: Other Cyanocobalamin (Vitamin B12 1000 Mcg/Ml Inj) 1,000 mcg IM DAILY [facility] Last Admin: 01/27/19 09:14 Dose: 1,000 mcg Folic Acid (Folic Acid) 1 mg PO DAILY [facility] Last Admin: 01/27/19 09:13 Dose: 1 mg - Labs Labs: 01/27/19 05:45 01/27/19 05:45 PT 13.4 Seconds (9.8-13.1) H 01/24/19 15:30 INR 1.2 01/24/19 15:30 APTT 31.0 Seconds (25.6-37.1) 01/24/19 15:30 - Respiratory Exam Respiratory Exam: Clear to Ausculation Bilateral - Cardiovascular Exam Cardiovascular Exam: REGULAR RHYTHM, +S1, +S2 - Extremities Exam Additional comments: NO LE EDEMA Assessment and Plan - Assessment and Plan (Free Text) Assessment: ANOREXIA NERVOSA ATHLETE'S HEART BOTH OF THE ABOVE CAN GIVE YOU SINUS BRADYCARDIA Plan: CONTINUE PRESENT TREATMENT
--- NOTE | 2019-01-27 18:28 | CP.PCM.PN ---
Subjective - Date & Time of Evaluation Date of Evaluation: 01/27/19 Time of Evaluation: 22:22 - Subjective Subjective: Above noted Extensive discussion with family Objective - Vital Signs/Intake and Output Vital Signs (last 24 hours): Temp Pulse Resp BP Pulse Ox 97.6 F 38 L 20 99/62 L 96 01/27/19 07:51 01/27/19 07:51 01/27/19 07:51 01/27/19 07:51 01/27/19 07:51 - Labs Labs: 01/27/19 05:45 01/27/19 05:45 PT 13.4 Seconds (9.8-13.1) H 01/24/19 15:30 INR 1.2 01/24/19 15:30 APTT 31.0 Seconds (25.6-37.1) 01/24/19 15:30 - Respiratory Exam Respiratory Exam: NORMAL BREATHING PATTERN - Cardiovascular Exam Cardiovascular Exam: REGULAR RHYTHM - GI/Abdominal Exam GI & Abdominal Exam: Normal Bowel Sounds Assessment and Plan - Assessment and Plan (Free Text) Assessment: Bradycardia Athletic heart syndrome Hx of anorexia nervosa Telemetry Cardiology Psychiatry LFT's elevated US traceperihepatic ascites w/u as per GI Macrocytosis 2 to LIver dx ?? 2 to Nutritional deficiency ?? Hematology
--- NOTE | 2019-01-27 18:52 | CON ---
DATE: 01/27/2019 REFERRING DOCTOR: . REASON FOR CONSULTATION: Abdominal discomfort. HISTORY OF PRESENT ILLNESS: This is a 18-year-old female with history of anorexia nervosa, history of bradycardia, macrocytosis, had some generalized weakness and weight loss and elevated LFTs. GI was called for that. The patient is actually doing well, tolerating diet, has no symptoms at this point. Currently lying in bed comfortable in no apparent distress. PAST MEDICAL HISTORY: As above. PAST SURGICAL HISTORY: As above. MEDICATIONS: Have been reviewed. REVIEW OF SYSTEMS: All other systems have been reviewed and negative apart from the HPI. PHYSICAL EXAMINATION: GENERAL: This is a pleasant young female, lying in bed comfortable, in no apparent distress. VITAL SIGNS: Here in the hospital are grossly unremarkable. HEENT: Head: Normocephalic, atraumatic. Eyes: Pupils are equally reactive to light bilaterally. No conjunctival pallor or icterus. NECK: Supple. Normal range of motion. No lymphadenopathy appreciated. LUNGS: Coarse breath sounds bilaterally. HEART: S1, S2. Regular rate and rhythm. No murmurs appreciated. ABDOMEN: Soft, nontender. Bowel sounds present. No rebound. No guarding. RECTAL: Deferred. EXTREMITIES: Pulses felt bilaterally. SKIN: Warm, dry, and intact. NEUROLOGICAL: A and O x3. LABORATORY DATA: Labs and radiology have been reviewed. WBC is normal. CBC is within limits. LFTs essentially elevated, mildly at 41 and 192. Ultrasound is grossly unremarkable. ASSESSMENT: This is a 18-year-old female with anorexia nervosa and elevated liver function tests. The elevated liver function tests are more likely secondary to the anorexia. From a gastrointestinal standpoint, she is doing well. Can discharge. PLAN: Will follow up with me in the office. We will need workup for the elevation in LFTs as an outpatient. Thank you for the consult. John Parks MD/ PhD cc: .
[2019-01-28 01:04] LABS: MCH 33.8 pg (27.0-33.0); MCV 104.4 fL (80.0-100.0)
[2019-01-30 04:17] LABS: HEMOGLOBIN A 96.8 Percent (>96.0); HEMOGLOBIN A2 2.2 Percent (1.8-3.5)
--- NOTE | 2019-01-30 08:16 | CP.PCM.HP ---
History of Present Illness - History of Present Illness History of Present Illness: 18 yo admitted for Bradycardia and ?? Hx of anorexia nervosa PT also found to have elevated LFT's Present on Admission - Present on Admission Any Indicators Present on Admission: No Past Patient History - Past Medical History & Family History Past Medical History?: Yes - Past Social History Smoking Status: Never Smoked - CARDIAC Hx Cardiac Disorders: No - PULMONARY Hx Respiratory Disorders: No - NEUROLOGICAL Hx Neurological Disorder: No - HEENT Hx HEENT Problems: No - RENAL Hx Chronic Kidney Disease: No - ENDOCRINE/METABOLIC Hx Endocrine Disorders: No - HEMATOLOGICAL/ONCOLOGICAL Hx Blood Disorders: No - INTEGUMENTARY Hx Dermatological Problems: No - MUSCULOSKELETAL/RHEUMATOLOGICAL Hx Musculoskeletal Disorders: No Hx Falls: No - GASTROINTESTINAL Hx Gastrointestinal Disorders: No - GENITOURINARY/GYNECOLOGICAL Hx Genitourinary Disorders: No - PSYCHIATRIC Hx Anxiety: Yes Hx Depression: Yes Hx Substance Use: No - SURGICAL HISTORY Hx Surgeries: No - ANESTHESIA Hx Anesthesia: No Meds Home Medications: Home Medication List Medication Instructions Recorded Confirmed Type Cyanocobalamin (Vitamin B-12) 3,000 mcg PO DAILY #30 capsule 01/27/19 Rx [Vitamin B-12] Folic Acid 1 mg PO DAILY #30 tab 01/27/19 Rx Allergies/Adverse Reactions: Allergies Allergy/AdvReac Type Severity Reaction Status Date / Time No Known Allergies Allergy Verified 01/24/19 13:53 Physical Exam - Respiratory Exam Respiratory Exam: NORMAL BREATHING PATTERN - Cardiovascular Exam Cardiovascular Exam: REGULAR RHYTHM - GI/Abdominal Exam GI & Abdominal Exam: Normal Bowel Sounds Results - Vital Signs Recent Vital Signs: Last Vital Signs Temp 97.6 F 01/27/19 07:51 Pulse 38 L 01/27/19 07:51 Resp 20 01/27/19 07:51 BP 99/62 L 01/27/19 07:51 Pulse Ox 96 01/27/19 07:51 - Labs Result Diagrams: 01/27/19 05:45 01/27/19 05:45 Labs: Laboratory Results - last 24 hr 01/27/19 05:45 Hemoglobin A 96.8 Hemoglobin A2 2.2 Hemoglobin C 0.0 Hemoglobin F () <1.0 Hemoglobin S 0.0 Variant Hemoglobin 0.0 Hemoglobinopathy Interp See note Assessment & Plan - Assessment and Plan (Free Text) Assessment: Bradycardia Athletic heart syndrome Hx of anorexia nervosa Telemetry Cardiology Psychiatry LFT's elevated US traceperihepatic ascites w/u as per GI Macrocytosis 2 to LIver dx ?? 2 to Nutritional deficiency ?? Hematology - Date & Time Date: 01/27/19 Time: 22:22
== END 2019-01-27 11:38 | disposition home or self-care (01) | DRG 303 ==
LOC: H.ER 13:46 → H.ERHOLD 15:30 → H.ICU/CCU 19:01 → H.TEL 01-25 10:29
PROVIDERS: ADMIT Family Medicine Geriatric Medicine; ATTEND Family Medicine Geriatric Medicine
DX: I51.7 Cardiomegaly (principal); F50.01 Anorexia nervosa, restricting type; R18.8 Other ascites; D75.89 Other specified diseases of blood and blood-forming organs; F41.8 Other specified anxiety disorders; R00.1 Bradycardia, unspecified; K76.9 Liver disease, unspecified; F32.9 Major depressive disorder, single episode, unspecified; E03.9 Hypothyroidism, unspecified; F41.9 Anxiety disorder, unspecified; E66.3 Overweight